=== PATIENT | male | born 1990 | race African-American/Black ===

== ENCOUNTER → 2018-03-15 | Outpatient (CLI) | payer MEDICAID, OTHER ==
[2018-03-15 17:38] LABS: BASO % 0.5 % (0.0-1.0); EOS % 0.7 % (0.0-3.0); IMMATURE GRANULOCYTE % 0.2 % (0-3.0); LYMPH # 1.7 10^3/uL (1.5-6.5); LYMPH % 31.7 % (24.0-44.0); MEAN CORPUSCULAR HEMOGLOBIN 27.5 pg (27.0-33.0); MEAN CORPUSCULAR HGB CONC 31.7 g/dl (32.0-36.5); MEAN CORPUSCULAR VOLUME 86.9 fl (80.0-96.0); MONO # 0.7 10^3/uL (0.0-0.8); MONO % 13.1 % (0.0-5.0); NEUTROPHILS % 53.8 % (36.0-66.0); PLATELET COUNT, AUTOMATED 279 10^3/uL (150-450); RED BLOOD COUNT 4.72 10^6/uL (4.30-6.10); RED CELL DISTRIBUTION WIDTH 11.5 % (11.5-14.5); WHITE BLOOD COUNT 5.5 10^3/uL (4.0-10.0)
[2018-03-15 17:57] LABS: ALBUMIN 3.9 GM/DL (3.2-5.2); ALBUMIN/GLOBULIN RATIO 1.03 (1.00-1.93); ALKALINE PHOSPHATASE 90 U/L (45-117); ALT/SGPT 35 U/L (12-78); ANION GAP 7 MEQ/L (8-16); AST/SGOT 19 U/L (7-37); BILIRUBIN,TOTAL 0.9 MG/DL (0.2-1.0); BLOOD UREA NITROGEN 15 MG/DL (7-18); CALCIUM LEVEL 8.6 MG/DL (8.5-10.1); CARBON DIOXIDE LEVEL 29 MEQ/L (21-32); CHLORIDE LEVEL 105 MEQ/L (98-107); CREATININE FOR GFR 1.03 MG/DL (0.70-1.30); FREE T4 0.85 NG/DL (0.76-1.46); GLOMERULAR FILTRATION RATE > 60.0 (>60); POTASSIUM SERUM 3.8 MEQ/L (3.5-5.1); SODIUM LEVEL 141 MEQ/L (136-145); TOTAL PROTEIN 7.7 GM/DL (6.4-8.2)
[2018-03-15 18:11] LABS: ERYTHROCYTE SEDIMENTATION RATE 6 mm/hr (0-15)
[2018-03-16 16:05] LABS: GLUCOSE, FASTING 84 MG/DL (70-100)
[2018-03-18 00:07] LABS: Lyme Disease IgG/IgM Antibodie <0.91 ISR (0.00-0.90); Lyme Disease IgM Ab Quantitati <0.80 index (0.00-0.79)
== END ==
LOC: M WUC 13:23
DX: R51 Headache (principal)
CPT/HCPCS: 84443

== ENCOUNTER → 2018-03-19 | Outpatient (CLI) | payer OTHER ==
[~2018-03-19] MED LIST: ISOVUE-370 76% 100ML VIAL (Q9967) As Ordered
== END ==
LOC: M RAD 08:16
DX: R51 Headache (principal); Z82.79 Family history of other congenital malformations, deformations and chromosomal abnormalities
CPT/HCPCS: Q9967

== ENCOUNTER 2020-03-15 12:32 | Emergency (ER) | payer MEDICAID, OTHER, SELFPAY ==
[~2020-03-15] VITALS: Ht 172.7 cm; Wt 85.6 kg
[2020-03-15 12:32] VITALS: BP 126/62
--- NOTE | 2020-03-15 13:25 | REPVR ---
PROCEDURE INFORMATION: Exam: XR Chest, 2 Views Exam date and time: 03/15/2020 1:09 PM Age: 30 years old Clinical indication: Chest pain; Type not specified; Additional info: Central chest pain TECHNIQUE: Imaging protocol: XR of the chest Views: 2 views. COMPARISON: No relevant prior studies available. FINDINGS: Lungs: Unremarkable. No consolidation. Pleural space: Unremarkable. No pleural effusion. No pneumothorax. Heart/Mediastinum: Unremarkable. No cardiomegaly. Bones/joints: Unremarkable. IMPRESSION: No acute findings. Electronically signed by: Gilma Sharma On 03/15/2020 13:25:20 PM
--- NOTE | 2020-03-15 18:33 | ECGEPIP ---
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
== END 2020-03-15 13:46 | disposition home or self-care (01) ==
LOC: M ED 12:32
DX: R07.89 Other chest pain (principal); M54.9 Dorsalgia, unspecified

== ENCOUNTER → 2020-06-21 | Outpatient (REF) | payer OTHER, SELFPAY | LOC: M LABSMTC 08:00 → EDSTATUS 13:30 | PROVIDERS: ATTEND Pediatrics | DX: Z20.822 Contact with and (suspected) exposure to COVID-19 (principal) ==

== ENCOUNTER 2020-07-03 16:21 | Emergency (ER) | payer OTHER, SELFPAY ==
[~2020-07-03] VITALS: Ht 172.7 cm; Wt 84.1 kg
[2020-07-03 18:14] VITALS: BP 132/62
--- NOTE | 2020-07-05 14:27 | ECGEPIP ---
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
== END 2020-07-03 18:16 | disposition home or self-care (01) ==
LOC: M ED 16:21
DX: R07.9 Chest pain, unspecified (principal); T50.Z95A Adverse effect of other vaccines and biological substances, initial encounter

== ENCOUNTER → 2020-07-23 | Outpatient (REF) | LOC: M LABSMTC 11:38 | PROVIDERS: ATTEND Pediatrics | DX: Z20.822 Contact with and (suspected) exposure to COVID-19 (principal) ==

== ENCOUNTER 2021-08-08 15:28 | Emergency (ER) | payer OTHER, SELFPAY ==
[~2021-08-08] VITALS: Ht 170.2 cm; Wt 85.9 kg
[2021-08-08] MEDS ORDERED: IBUP200C33 PO (15:39)
[2021-08-08] MEDS ORDERED: NS 1,000 ML IV ONE (16:35)
[2021-08-08] MEDS ORDERED: IBUPROFEN 800 MG TAB PO ONE (16:35)
[2021-08-08 17:09] LABS: BASO % 0.2 % (0.0-1.0); EOS % 0.1 % (0.0-3.0); HEMATOCRIT 42.9 % (42.0-52.0); HEMOGLOBIN 13.9 g/dl (13.5-17.5); LYMPH # 1.3 10^3/uL (1.5-5.0); LYMPH % 14.2 % (24.0-44.0); MEAN CORPUSCULAR HEMOGLOBIN 27.8 pg (27.0-33.0); MEAN CORPUSCULAR HGB CONC 32.4 g/dl (32.0-36.5); MEAN CORPUSCULAR VOLUME 85.8 fl (80.0-96.0); MONO # 1.2 10^3/uL (0.0-0.8); MONO % 13.9 % (2.0-8.0); NEUTROPHILS # 6.3 10^3/uL (1.5-8.5); NEUTROPHILS % 71.2 % (36.0-66.0); PLATELET COUNT, AUTOMATED 299 10^3/uL (150-450); WHITE BLOOD COUNT 8.9 10^3/uL (4.0-10.0)
[2021-08-08 17:26] LABS: BLOOD UREA NITROGEN 12 MG/DL (7-18); C REACTIVE PROTEIN QUANTITATIV 2.94 MG/DL (0.00-0.30); CALCIUM LEVEL 9.6 MG/DL (8.5-10.1); CARBON DIOXIDE LEVEL 29 MEQ/L (21-32); CHLORIDE LEVEL 104 MEQ/L (98-107); CREATININE FOR GFR 1.19 MG/DL (0.70-1.30); GLOMERULAR FILTRATION RATE > 60.0 (>60); GLUCOSE, FASTING 92 MG/DL (70-100); POTASSIUM SERUM 3.6 MEQ/L (3.5-5.1); SODIUM LEVEL 137 MEQ/L (136-145)
[2021-08-08] MEDS ORDERED: AMPICILLIN SOD/SULBACTAM SOD 3 GM in D5W MINI-BAG PLUS 100 ML IV ONE (18:00)
[2021-08-08] MEDS ORDERED: dexameTHASONE 4 MG/ML 1ML VIAL (J1100 PER 1MG) IV ONE (18:00)
[2021-08-08 18:01] LABS: ERYTHROCYTE SEDIMENTATION RATE 10 mm/hr (0-15)
[2021-08-08] MEDS ORDERED: AMOX875T2 PO (18:41)
[2021-08-08 19:05] VITALS: BP 117/59
== END 2021-08-08 19:08 | disposition home or self-care (01) ==
LOC: M ED 15:28
DX: K04.7 Periapical abscess without sinus (principal)
CPT/HCPCS: 36415; 80048; 83605; 85025; 85652; 86140; 87040; 96361; 96365; 99283; J1100

== ENCOUNTER → 2025-01-18 | Outpatient (REF) ==
[~2025-01-18] MED LIST changes: +AMOX875T2 PO; +IBUP200C33 PO; -ISOVUE-370 76% 100ML VIAL (Q9967) As Ordered
[2025-01-18 09:23] LABS: SOFIA COVID ANTIGEN POSITIVE (NEGATIVE)
== END ==
LOC: M EMP 08:47
PROVIDERS: ATTEND Family Medicine
DX: Z20.822 Contact with and (suspected) exposure to COVID-19 (principal)